=== PATIENT | female | born 1975 | race Caucasian/White ===

== ENCOUNTER → 2018-03-10 | Outpatient (CLI) | payer BC ==
[~2018-03-10] MED LIST: LIDOCAINE 1% MDV 20ML VIAL As Ordered ONE
--- NOTE | 2018-03-10 18:38 | REP ---
ULTRASOUND-GUIDED LEFT CERVICAL LYMPH NODE BIOPSY The procedure was performed under the direct supervision of Dr. Coombs. Patient has a history of A 1.2 cm lymph node in the left neck as well as sub centimeter bilateral cervical lymph nodes which demonstrated mild metabolic activity seen on a previous PET scan performed at [facility] on 02/16/2018. The risks and benefits of the procedure were explained to the patient and informed consent was obtained. The largest lymph node in the left neck was localized using ultrasound guidance. The skin was prepped and draped in a sterile fashion. 1% lidocaine was used as a local anesthetic. Using ultrasound guidance six fine-needle aspirations were obtained using 25 gauge needles. The patient tolerated the procedure well and there were no immediate complications. After the appropriate amount of monitored convalescence the patient was discharged from the department. Reviewed by JOSE Hazel 03/10/2018 05:00 P Electronically Signed by Gio Coombs MD 03/10/2018 06:29 P
--- NOTE | 2018-03-11 23:11 | REP ---
Clinical: Adenopathy. Technique: Real time sharp scale and color evaluation using linear high frequency transducer. Findings: Lymph nodes along the left lateral neck measures 20 x 9 x 8 mm, 20 x 7 x 10 mm. Impression: Two mildly prominent left neck lymph nodes. Electronically Signed by Shaun Arreguin MD 03/11/2018 11:03 P
== END ==
LOC: M RADPRO 09:54
PROVIDERS: ATTEND Internal Medicine Endocrinology, Diabetes & Metabolism
DX: E89.0 Postprocedural hypothyroidism (principal); Z79.890 Hormone replacement therapy; Z79.899 Other long term (current) drug therapy; Z85.850 Personal history of malignant neoplasm of thyroid

== ENCOUNTER → 2020-08-10 | Outpatient (CLI) | payer BC ==
[~2020-08-10] MED LIST changes: +BUPR300T92 PO; +HYDR-3490 PO; +LEVO125T4 PO; -LIDOCAINE 1% MDV 20ML VIAL As Ordered ONE; +OMEP-221 PO
== END ==
LOC: M LABSMTC 11:45
PROVIDERS: ATTEND Anesthesiology
DX: Z20.828 Contact with and (suspected) exposure to other viral communicable diseases (principal); Z11.59 Encounter for screening for other viral diseases

== ENCOUNTER 2020-08-15 08:17 | Day surgery (SDC) | payer OTHER ==
[~2020-08-15] VITALS: Ht 165.1 cm; Wt 107.0 kg
[~2020-08-15 08:17] MED LIST changes: +NS 1,000 ML IV ONE
[2020-08-15] MEDS ORDERED: fentaNYL 100 MCG/2 ML INJECTION (J3010) As Ordered ONE (08:20)
[2020-08-15] MEDS ORDERED: LIDOCAINE 2% 100MG/5ML SDV (FOR ANES.) As Ordered ONE (08:23)
[2020-08-15] MEDS ORDERED: propofoL 200 MG/20 ML VIAL As Ordered ONE ×2 (08:23→09:47)
--- NOTE | 2020-08-15 09:55 | ROOR ---
Patient Name: Sarah Bergeron Procedure Date: 08/15/2020 9:31 AM Date of : 1975 Age: 44 Room: [facility] Gender: Female Note Status: Finalized Procedure: Upper Endoscopy + Biopsies Indications: Epigastric abdominal pain, Abnormal UGI series Providers: Delon Perez MD Referring MD: IRIS NEFF MD Requesting Provider: Medicines: Monitored Anesthesia Care Complications: No immediate complications. Procedure: Pre-Anesthesia Assessment: - The heart rate, respiratory rate, oxygen saturations, blood pressure, adequacy of pulmonary ventilation, and response to care were monitored throughout the procedure. The Endoscope was introduced through the mouth, and advanced to the second part of duodenum. The upper GI endoscopy was accomplished without difficulty. The patient tolerated the procedure well. Findings: The Z-line was variable and was found 35 cm from the incisors. Multiple biopsies were obtained with cold forceps for evaluation to rule out Bah's Esophagus randomly at the gastroesophageal junction. Localized mild inflammation characterized by congestion (edema) and erosions was found in the gastric antrum. Biopsies were taken with a cold forceps for Helicobacter pylori testing. The exam of the duodenum was otherwise normal. There is no endoscopic evidence of ulceration in the entire examined stomach. Impression: - Z-line variable, 35 cm from the incisors. - Mucosal changes suspicious for gastritis. Biopsied. - Multiple biopsies were obtained at the gastroesophageal junction. - The examination was otherwise normal. Recommendation: - Patient has a contact number available for emergencies. The signs and symptoms of potential delayed complications were discussed with the patient. Return to normal activities tomorrow. Written discharge instructions were provided to the patient. - Resume previous diet. - Discharge patient to home. - Follow an antireflux regimen. - Use Prilosec (omeprazole) 40 mg PO BID. - Await pathology results. - Telephone GI clinic for pathology results in 1 week. - Return to referring physician. - The findings and recommendations were discussed with the patient's family. Procedure Code(s): --- Professional --- 15225, Esophagogastroduodenoscopy, flexible, transoral; with biopsy, single or multiple Diagnosis Code(s): --- Professional --- K22.8, Other specified diseases of esophagus K31.89, Other diseases of stomach and duodenum R10.13, Epigastric pain R93.3, Abnormal findings on diagnostic imaging of other parts of digestive tract CPT copyright 2019 [employer]. All rights reserved. The codes documented in this report are preliminary and upon medical record coder review may be revised to meet current compliance requirements. Delon Perez MD Delon Perez MD 08/15/2020 9:54:41 AM Electronically signed by Delon Perez MD Number of Addenda: 0 Note Initiated On: 08/15/2020 9:31 AM Estimated Blood Loss: Estimated blood loss: none.
[2020-08-15 10:15] VITALS: BP 123/71
== END 2020-08-15 10:25 | disposition home or self-care (01) ==
LOC: M OPP 08:17
PROVIDERS: ATTEND Internal Medicine Gastroenterology
DX: K22.8 Other specified diseases of esophagus (principal); K31.89 Other diseases of stomach and duodenum; R10.13 Epigastric pain; R93.3 Abnormal findings on diagnostic imaging of other parts of digestive tract; K21.9 Gastro-esophageal reflux disease without esophagitis; K74.60 Unspecified cirrhosis of liver; Z79.899 Other long term (current) drug therapy; Z85.850 Personal history of malignant neoplasm of thyroid
CPT/HCPCS: 43239; 88305; J3010